=== PATIENT | male | born 1995 | race African-American/Black ===

== ENCOUNTER 2021-09-11 15:00 | Emergency (ER) | payer SELFPAY ==
[2021-09-11 15:31] VITALS: BP 133/79; PULSE 85; TEMP 98.5; BMI 34.5
[2021-09-11] MEDS ORDERED: IBUPROFEN 600 MG TABLET (FP) PO ONE ×2 (15:33→15:40)
[2021-09-11] MEDS ORDERED: DIPHTH,PERTUSS(ACELL),TET 0.5 ML DISP.SYRIN IM ONE ×2 (15:33→15:40)
[2021-09-11] MEDS ORDERED: levoFLOXacin 750 MG TABLET PO ONE (17:04)
== END 2021-09-11 17:13 | disposition home or self-care (01) ==
LOC: FER 15:00
PROC: 3E0234Z Introduction of Serum, Toxoid and Vaccine into Muscle, Percutaneous Approach (ICD-10-PCS; principal; 2021-09-11)
DX: S91.132A Puncture wound without foreign body of left great toe without damage to nail, initial encounter (principal); W45.0XXA Nail entering through skin, initial encounter
CPT/HCPCS: 73630-TC-LT; 90715; 99283-25